=== PATIENT | male | born 1945 | race Two or more races ===

== ENCOUNTER 2024-02-27 18:57 | Emergency (ER) | payer OTHER, SELFPAY ==
[2024-02-27 19:01] VITALS: BMI 27.5
[2024-02-27 19:07] VITALS: BP 154/105
[2024-02-27] MEDS: ADACEL 0.5 ML IM (20:32)
[2024-02-27] MEDS: AUGMENTIN 875 MG/125 MG 1 TABLET PO (20:32)
--- NOTE | 2024-02-27 20:32 | ED.SKININJ ---
HPI-Injury
General
Chief Complaint: Bite
Source: patient
Exam Limitations: none
Time Seen by Provider: 02/27/24 19:58
Travel History
Have you had any contact with someone who has COVID-19?: No
Do you have any symptoms of coronavirus? Fever > 100 degrees, chills, cough, shortness of breath, sore throat, loss of taste or smell, muscle aches, or headache?: No
History of Present Illness-Injury
Is this injury a work related problem?: No
Is pt an associate of [facility]?: No
Initial Injury comments:
See MDM
Past History
Past History
ED Past Medical History: Arrthythmia, CHF and HTN
ED Past Surgical History: None
Social History
Tobacco: Non-smoker
Alcohol: None
Phy Exam
Physical Exam
Physical Exam:
See MDM
Course
Orders/Labs/Results
Orders:
Orders
02/27/24 19:08
Forearm, Left 2 View [CR Forearm - Left 2 View] Urgent
Comment:
Reason For Exam: bite
02/27/24 20:02
Amoxicillin 875 mg/Clav 125 mg [Augmentin 875 mg/125 mg] 1 tablet PO NOW STA
Tetanus/Diphth/Acelpertussis [Adacel] 0.5 ml IM .ONCE ONE
Vital Signs
Initial and Last Documented VS:
Initial Vital Signs
Temp Pulse Resp Pulse Ox
98.2 F 51 18 96
02/27/24 19:01 02/27/24 19:01 02/27/24 19:01 02/27/24 19:01
Last Documented Vital Signs
Temp Pulse Resp BP Pulse Ox
98.2 F 51 18 154/105 96
02/27/24 19:01 02/27/24 19:01 02/27/24 19:01 02/27/24 19:07 02/27/24 19:01
Procedures
Laceration Closure
Left Middle Lateral Arm:
Status of Wound: clean
Size of Wound in cm: 12
Description of Wound Edges: ragged
Preparation: cleaned with soap & water
Anesthesia: 1% Lidocaine with epi
Revision/Debridement: minor revision
Wound exploration: explored to base- no FB
Type of Closure: single layer closure
Skin Closure Material: 4-0 nylon
Number of sutures: 20
MDM/Problems Addressed
Differential Diagnosis Includes:
HPI and MDM Narrative:
78-year-old male presenting with left arm dog bite. Patient was trying to stop the family dog from going outside and the dog got cornered and bit the patient. Dog's shots are up-to-date. Patient is unsure about his tetanus. Patient is on Eliquis
but bleeding has resolved
On exam, there is large skin tear to left forearm. There is a flap. Measures around 12 cm. There is another area distally to this with a small skin avulsion. The distal extremity is neurovascularly intact. No bony tenderness
Physical exam
General: Well appearing and non-toxic
HEENT: protecting airway
Neck: appears supple
CV: No evidence of cyanosis
Resp: No accessory muscle use
Abd: Non-distended
Extremities: Still a 12 cm laceration to left forearm. It does involve the fat layer but not muscle. Smaller area distally around 2 cm diameter skin avulsion. Distal extremity neurovascular and
Neuro: alert
Psych: Normal affect
Skin: Left forearm skin laceration
Problems Addressed including Acute and Chronic Conditions affecting care:
1. Dog bite
Acuity: acute
Prognosis: stable
Details: Patient required 20 stitches. Tetanus updated and patient started on Augmentin
Differential Diagnosis (but not limited to): Laceration, abrasion, fracture
Drug therapy (if applicable): OTC meds, please see d/c instruction regarding Rx drugs
Amount and/or Complexity of Data Reviewed
Clinical info obtained from: Patient
External data reviewed: N/A
Labs I independently reviewed (but not limited to): N/A
Radiology: X-ray independently reviewed: No acute fracture and forearm
Pulse Ox: not hypoxic
EKG independently reviewed: N/A
Extrusion Die Corrector: N/A
Critical Care: N/A
Risk of Complication:
Social Determinants of health: Good social support
Discussed with other providers: N/A
Escalation of Care includes Admit/Obs: After being observed in the Emergency Department, pt stable for discharge.
Occasional wrong word or 'sound a like' substitutions may have occurred due to the inherent limitations of voice recognition software. Read the chart carefully and recognize, using context, where substitutions have occurred.
*Critical Care Note
Total Time (30-74mins, 75-104mins- exclusive of procedures): Not Applicable
ED Attending Note
-
Portions of this chart may have been created with voice recognition software.� Occasional wrong word or��sound alike� substitutions may have occurred due to the inherent limitations of voice recognition software.
Discharge Plan
Departure
Patient Disposition: Home (Routine Discharge)
Date of Disposition: 02/27/24
Time of Disposition: 20:39
Patient with high blood pressure during this ER visit?: Yes
Discharge Problem:
Dog bite of arm
Instructions: Animal Bites (DC), Laceration Repair With Stitches (DC), BLOOD PRESSURE
Prescriptions:
New
amoxicillin-pot clavulanate 875-125 mg tablet
1 tab PO BID Qty: 14 0RF
No Action
Eliquis 5 mg Tablet
5 mg PO BID
Activity Restrictions/Additional Instructions:
Keep wound clean and dry, change dressing if it becomes soiled or wet. Watch for signs of infection: fever over 100.5', increasing pain, red streaks around wound, swelling, drainage of pus, or bad smell. If any of these happen, return to ED
promptly. Return to ED or make an appointment with your doctor to have the 20 sutures removed in 10-14 days. All wounds may scar, however you may reduce the appearance of scarring by avoiding sun exposure to the scar and applying skin moisturizer
with spf protection to the scar once the wound is healed.
Interventions
Interventions:
*Risk Screen - Suicide Last Done: 02/27/24 19:01
*General Assessment Last Done: 02/27/24 20:22
*Neglect/Abuse Screening Last Done: 02/27/24 19:01
ED- Fall Risk Assessment Last Done: 02/27/24 19:01
*ED COVID-19 Vaccine History Last Done: 02/27/24 20:22
ED-Skin Assessment Last Done: 02/27/24 20:22
Discharge Date and Time
Print Language: ZAMBIAN
[2024-02-27 20:56] VITALS: BP 179/61
== END 2024-02-27 20:57 | disposition home or self-care (01) ==
LOC: EMR 18:57
PROVIDERS: EMERGENCY PHYSICIAN Student in an Organized Health Care Education/Training Program; FAMILY PHYSICIAN Internal Medicine
DX: S51.812A Laceration without foreign body of left forearm, initial encounter (principal); W54.0XXA Bitten by dog, initial encounter; Z79.01 Long term (current) use of anticoagulants
CPT/HCPCS: 99283; 12004; 90471; 73090; 90715